=== PATIENT | female | born 1950 | race Caucasian/White ===

== ENCOUNTER → 2019-07-19 08:43 | Outpatient (CLI) | payer MEDICARE, OTHER, SELFPAY ==
[2019-07-19 08:59] LABS: WBC Urine None Seen (0-5/HPF)
[2019-07-19 09:47] LABS: Hemoglobin A1C% w Est Avg Glu 5.2 % (4.0-6.0)
[2019-07-19 10:19] LABS: Appearance Urine UA CLEAR; Bilirubin Urine UA NEGATIVE (NEGATIVE); Color Urine UA YELLOW; Glucose Urine UA NEGATIVE (Negative); Ketones Urine UA NEGATIVE (NEGATIVE); Leukocyte Esterase Urine UA NEGATIVE (NEGATIVE); Nitrite Urine UA NEGATIVE (Negative); Occult Blood Urine UA TRACE-LYSED (Negative); Protein Urine UA NEGATIVE (Negative); Urobilinogen Urine UA 0.2 E.U./dL (0.2); pH Urine UA 5.5 (4.5-8.0)
[2019-07-19 10:44] LABS: Bacteria Urine Few (2-10); Culture Indicated Urine Cult Not Indicated; RBC Urine 0-1/HPF (0-5/HPF); Squamous Epithelial Cell Urine 0-1 /HPF (0-5/HPF)
== END ==
PROVIDERS: Visit Provider Orthopaedic Surgery
DX: Z01.818 Encounter for other preprocedural examination (principal); Z01.812 Encounter for preprocedural laboratory examination; N39.9 Disorder of urinary system, unspecified; Z13.1 Encounter for screening for diabetes mellitus; R73.9 Hyperglycemia, unspecified
CPT/HCPCS: 36415; 81001; 83036; 93005

== ENCOUNTER 2019-08-21 05:54 | Inpatient (IN) | payer MEDICARE, OTHER, SELFPAY ==
[2019-08-07 07:31] VITALS: BMI 25.7
[2019-08-21] VITALS (18 sets, daily range): BP systolic 95–136; BP diastolic 61–85; PULSE 63–88; RESP 11–19; TEMP 35.7–37; O2SAT 92–98; BMI 25.7
--- NOTE | 2019-08-21 | DI.RAD.S_ITS ---
PROCEDURE: XR HIP W PEL IF DONE RT 4V INDICATIONS: ANTERIOR HIP TECHNIQUE: 2 view(s) of the hip acquired. COMPARISON: None. FINDINGS: Spot fluoroscopic intraoperative findings demonstrating right hip arthroplasty, with hardware components in expected positions. Dictated by: Sy Narayan M.D. on 08/21/2019 at 10:40 Approved by: Sy Narayan M.D. on 08/21/2019 at 10:41
[2019-08-21] MEDS: LACTATED RINGERS 1,000 ML 42 ML IV (06:00)
[2019-08-21] MEDS: ONDANSETRON 4 MG/2 ML INJ IV (06:00)
--- NOTE | 2019-08-21 06:00 | DI.RAD.S_ITS ---
PROCEDURE: XR HIP W PEL IF DONE RT 2V INDICATIONS: anterior FAISAL, right TECHNIQUE: 2 view(s) of the hip acquired. COMPARISON: None. FINDINGS: Bones: Patient is status post right hip arthroplasty, with hardware components in expected positions. The hip joint appears congruent. The visualized bony structures appear intact. Soft tissues: Overlying postoperative changes are noted. No suspicious soft tissue densities. IMPRESSION: Expected postsurgical change for right hip arthroplasty. Dictated by: Julianne Hernandez MD, PhD on 08/21/2019 at 12:25 Approved by: Julianne Hernandez MD, PhD on 08/21/2019 at 12:25
[2019-08-21] MEDS: LACTATED RINGERS 1,000 ML 84 ML IV ×2 (06:49→08:53)
[2019-08-21] MEDS: PREGABALIN 75 MG CAPSULE PO (07:04)
[2019-08-21] MEDS: VANCOMYCIN 1,000 MG/200 ML PIGGYBACK 200 MG IV ×2 (07:04→17:33)
[2019-08-21] MEDS: ACETAMINOPHEN 325 MG TABLET 975 MG PO ×3 (07:04→20:59)
--- NOTE | 2019-08-21 07:41 | PM.PREOP ---
Pre-operative Note Interval Note History & Physical reviewed/Exam performed by Physician: Yes Changes to H&P: No
--- NOTE | 2019-08-21 07:42 | P.OP_ITS ---
Operative Date/Time/Diagnoses Date of procedure: 08/21/19 Time of procedure: 07:59 Pre-op diagnosis: Right hip osteoarthritis Post-op diagnosis: same Procedure & Clinicians Procedure: Right total hip arthroplasty Same procedure as scheduled: Yes Indications: The patient has had progressively worsening right hip pain with radiographic changes consistent with arthritis. Non-operative management has failed and the patient has requested total hip replacement. The risks, benefits and alternatives to surgery were discussed with the patient prior to proceeding. Risks discussed included, but were not limited to, failure to relieve pain, leg length discrepancy, dislocation, stiffness, infection, nerve damage, deep venous thrombosis, pulmonary embolism, stroke, coma, heart attack, permanent paralysis and , as well as the potential need for eventual revision of the prosthetic. Surgeon: Olamide Martínez Jacquard Loom Carpet Weaver: Gayatri Esteban Anesthesia Type: General and Spinal Operative Notes Findings: Severe right hip osteoarthritis, good stability, adequate Closure Type: primary Specimen(s): none sent Prosthetic devices, grafts, tissues, transplants, or devices: Martínez and Nephew 54 mm R3 cup, size 6 standard offset anthology, 36+ 0 Oxinium head Estimated Blood Loss (mL): 250 Blood products transfused: none Procedure in detail: The patient was brought to the operating room. Patient was carefully positioned in the supine position. Time-out was performed and antibiotics were given. Anesthesia was induced. She was positioned in the on the table in order to allow hyperextension of the hip. The right lower extremity was prepped and draped in a standard sterile fashion. An anterior right hip incision was made 1 fingerbreadth lateral to the anterior superior iliac spine and extended distally towards the greater trochanter. Dissection was carried out through skin and subcutaneous tissues. The skin and subcutaneous tissues were carefully injected with Lidocaine with epi. Superficial hemostasis was achieved. The fascia over the tensor fascia abdifatah was defined and incised with a knife. Two Allis clamps were used to grasp the fascia. Tensor fascia abdifatah was retracted laterally. A gelpi retractor was placed. Dissection was carried out down along the neck. The circumflex vessels were carefully identified and cauterized with the Aqua Mantis. There was good visualization of the femoral neck. A Cobra was placed superior to the neck and the gluteus fibers were carefully stripped from that superior aspect of the capsule. A 2nd retractor was placed along the inferior aspect of the neck. The rectus insertion along the capsule was partially released. A 3rd retractor that was then gently placed over the rim of the acetabulum under the rectus. Capsule was carefully incised and released from the intertrochanteric line circumferentially superior to the mid sagittal line and inferiorly to the mid sagittal line until the lesser trochanter was palpable. A tag stitch was placed both in the superior and inferior limb of the capsular insertion. Along the acetabulum capsule was also released up to the mid sagittal 12:00 position. A portion of the labrum was resected. A saw was used to perform an osteotomy at the level of the intertrochanteric line and the junction of the superior femoral neck leaving approximately 1 finger breath of residual inferior neck above the lesser trochanter. A 2nd cut was made along the femoral neck at the base of the head and a napkin ring of neck was removed. Corkscrew was placed in the femoral head and the head was removed without difficulty. Retractors were then repositioned around the acetabulum. Residual labrum was resected and additional osteophytes were removed. A reamer that was 4 mm below the templated size was placed by hand in the acetabulum and it was reamed to centralize the acetabulum. It was then reamed up to 2 under the templated size and fluoroscopy was brought in to confirm the position of the reaming and depth of reaming. I reamed 1 under the anticipated size and touched the rim with line to line reaming. A trial cup was placed and noted that it was appropriately sized and fluoroscopy confirmed position and depth. The component was open and inserted without difficulty fluoroscopic imaging was used to confirm that the cup had been adequately seated and was well positioned. Neutral poly trial liner was placed. The cup was tested and noted to be stable. Attention was then directed to the femur. The femur was gently hyperextended additional capsular release was performed as needed in order to allow adequate visualization of the proximal femur with elevation of the femur. Patient was placed in a hyperextended slightly abdducted position with maximum external rotation. Box osteotome was used to check for any residual neck as well as sclerotic bone along the trochanter. [place] pepper was placed in the femur. Additional broaching was performed. Canal finder was used to determine the alignment of the canal and position. Size 1 broach was placed. The canal was then appropriately broached up to the templated size as long as there was adequate stability of the broach and serial advancement of the broach without excessive impingement. Specific attention was directed at avoiding varus attempting to direct the distal aspect of the broach more anteriorly and avoiding excessive anteversion. Trial reduction showed acceptable range of motion, good stability, no posterior impingement, mandaen of leg length and appropriate lateral shuck. I also hyperflexed the hip and checked that there was no impingement anteriorly and there was good stability with flexion, adduction and internal rotation. Final neutral poly was placed without difficulty. Marcaine and Exparel were injected.. The stem was placed without difficulty. Repeat trial reduction and x-ray showed acceptable overall position, length, and no evidence of the femoral fracture. Final head was placed. Wound was meticulously irrigated with normal saline. The hip was reduced and additional Exparel and Marcaine were injected. The capsule was closed with interrupted nonabsorbable sutures. The fascia of the tensor was closed with interrupted and running Vicryl. No drain was placed. Any tensor fascia abdifatah muscle that appeared to be contused or injured which was a minimal amount was carefully resected. Capsule around the tensor was injected with Exparel and Marcaine. The skin was closed with barbed stitches for the subcutaneous tissue and skin. We also used surgical glue. The wound was dressed sterilely. Brief Betadine soak was also used and was meticulously irrigated with normal saline. Patient was transferred to recovery room in satisfactory condition. Complications: none Post-operative Condition: stable Disposition: Acute Care Plan for aftercare: The patient will be maintained on a standard total hip replacement protocol with weight bearing as tolerated and anterior hip precautions. The patient will receive Aspirin and sequential compression devices for DVT prophylaxis. The patient will be discharged home when safe for the home environment.
[2019-08-21] MEDS: CEFAZOLIN 2 GM/100 ML FROZ.PIGGY IV ×3 (07:55→23:59)
--- NOTE | 2019-08-21 08:35 | SUR.OPER ---
Supine, head on gel, torso on [place] table. Both feet placed in the boots and secured by a surgeon and a PA. Left arm secured on arm board <90 degrees abduction, right arm positioned over the chest and taped over blanket to the bed.
[2019-08-21] MEDS: BUPIVACAINE 0.25% W/ EPI 30 ML VIAL 60 ML INJ (08:44)
[2019-08-21] MEDS: BUPIVACAINE LIPOSOME 266 MG/20 ML VIAL INJ (08:45)
[2019-08-21] MEDS: TRANEXAMIC ACID 1,000 MG VIAL 2000 MG INJ ×2 (08:45→09:36)
[2019-08-21] MEDS: SODIUM CHLORIDE IRRIG SOLUTION 250 ML, POVIDONE-IODINE SPONGE STICKS 1 APPLIC IRR (08:48)
--- NOTE | 2019-08-21 11:48 | SUR.PHASEI ---
Patient arrived in PACU somnolent. COLEMAN's x 4. Tolerating po. Denies pain/nausea. On 2L oxygen via [place].Will continue to monitor.
[2019-08-21] MEDS: LACTATED RINGERS 1,000 ML 125 ML IV (12:15)
--- NOTE | 2019-08-21 13:41 | CM.DANOTE ---
DCP Brief assessment: EMR reviewed: patient is a 69 yr old female. Admitted for Rt FAISAL preformed by Dr. Martínez. PCP listed as Juani Madera. Patient not in room at time of CM visit. Patients next of kin listed is Homer [phone]. Insurance: 1st payer: Medicare, 2nd payer: [employer] Discharge plan: Only a brief assessment was done due to patient not being in room at time of CM visit. CM will pass on to CM department for F/U tomorrow 08/22/2019 for in-person assessment and further d/c planning. Uzma Martínez RN. Discharge Planning/Care Management CM Discharge Assessment Start: 08/21/19 13:39 Freq: Status: Active Protocol: Document 08/21/19 13:39 HS (Rec: 08/21/19 13:41 HS [id number]) Discharge Planning Assessment Assigned Manager Acquisition Uzma Martínez RN DPOA/Assigned Designee Name Homer Morgan () Advance Directives? Yes: Has paperwork at home Advance Directives on File No History Provided By Medical Record Prior Living Arrangements Mobile home Household Members spouse Comment Patient not on floor at time of CM visit: Will assess when appropriate: therapy evaluation pending Discharge Plan Home Transportation Arrangement Family Review Status In Process Next Review Type Continued Stay Review Pre-Anesthesia Assessment Start: 08/07/19 07:31 Freq: Status: Active Protocol: Document 08/07/19 07:31 CAB (Rec: 08/07/19 08:01 CAB [id number]) Pre-Anesthesia Assessment Patient Information Reviewed Via Phone Assessment Assessment Completed With Patient Diagnostic Results EKG Comment EKG, A1c, UA only @ [facility] 07/19/19 , remaining outside BMP, CBC scanned Primary Care Provider Juani Madera Medical Clearance Received Yes Seen Specialist in Last 12 Months Yes Specialist Seen Oncologist,Orthopedist Comment PCP pre-op clearance 07/18/19 scanned to record Primary Language Bel[place]ian Federal Appellate Law Clerk Required No Height 170.18 cm Weight 74.389 kg Body Mass Index (BMI) 25.7 Hearing Ability Normal Visual Assist Glasses Dentition Type Teeth, Natural Present,Dental Implants Barriers to Learning None Other Aids No Hx Anesthesia Reactions Yes: Nausea post-op Hx Family Anesthesia Reaction No Hx Malignant Hyperthermia No Hx Blood Transfusions Yes: 1971 Hx Blood Transfusion Reaction No Anesthesia Review Requested No alcohol intake current alcohol intake frequency a few times a week Alcohol Intake Frequency Other: Occasional Smoking Status Former smoker how long ago did patient quit smoking Quit 1971 Substance Use Type marijuana Comment Advised pt not to smoke marijuana 24 hours prior Pain Present Pain Reported Musculoskeletal Symptoms Abnormal Gait,Difficulty Walking,Joint Pain,Joint Stiffness,Muscle Cramps,Muscle Spasms,Muscle Weakness History of Falling (Recent or History of No ) Patient is completely paralyzed or No completely immobile Mental Status Oriented to own ability Is patient on oxygen? No Does patient have CARABALLO/SOB No Hx Sleep Apnea No Currently Taking a Beta Armaan No Can You Climb a Flight of Stairs Without Yes SOB Hx Chest Pain No Hx SOB No Hx Syncope or Dizziness Yes: ZIO patch 06/13/19 Anti-Coagulant Therapy No Has a Tucking Machine Operator No Cardiac Testing Yes: ZIO patch 06/13/19 scanned to record Hx Pacemaker/ICD No Pacemaker Rep Required? No Cardiac Clearance Received Not Applicable dysphagia No Bladder Pattern Incontinent Urinary Catheter Present No Hx Urinary Self Catheterization No Diabetes No Patient No Lactating No Hx Drug Resistant Organism No Presence of External or Internal Medical No Devices Have you traveled outside the [facility] in the last 30 days? Marital Status Lives With spouse Prior Living Arrangements Mobile home Support System Spouse Does the Patient Have Assistance After Yes Surgery Patient Discharge Plan Description Return Home Comment Pt advised overnight length of stay per surgeon Feels Safe in Current Environment Yes Been Physically Hurt or Threatened By a No Person in Current Environment Do you have thoughts of harming yourself None or others? Are you currently considering suicide? No Do you have a plan to hurt yourself or No Plan others? Do You Have Any Spiritual Beliefs That No May Affect Your HC Choices? Do You Have Any Cultural Practices That No May Affect Your HC Choices? Comment [place] Who Can We Speak to About Patient's Care Family, friends Identifying Code for Release of Patient Declines to issue Information Health Care Proxy/Next of Kin Homer () Health Care Proxy Emergency Contact Name Homer () Yulisa ( daughter) Emergency Contact Phone Number Homer: [phone] Yulisa: [phone] Advance Directives? Yes: Has paperwork at home Advance Directives on File No Requested Patient Bring Advanced Yes Directives DOS Power of Senior Clinical Data Manager Yes Power of Senior Clinical Data Manager Name Homer () Power of Senior Clinical Data Manager PAC Instructions Do not shave/clip surgical site,Durable medical equipment ,Medications to take/avoid, Nasal antibiotic,No ETOH/ petroleum product on skin DOS, NPO,Post-op transportation,Pre -surgical wash,Sturdy shoes/ comfortable clothes,Do not bring valuables and remove jewelry
--- NOTE | 2019-08-21 15:28 | PT.IIE ---
Current Diagnoses Unilateral primary osteoarthritis, right hip (08/21/19) Pain in right hip (08/21/19) Surgery Performed Operation Date: 08/21/19 07:45 Actual Procedures p Total Hip Arthroplasty/Anterior Approach(Right) - Olamide Martínez MD Surgical History (Last Updated 08/07/19 @ 07:55 by Carly Trimble, RN) History of esophagogastroduodenoscopy (EGD) (Acute ~05/2017) History of surgery (Acute ~02/2018) Hx of chest tube placement (Acute ~1970) Hx of hernia repair (Acute ~2015) Hx of splenectomy (Acute ~1970) Hx of tracheostomy (Acute ~1970) Hx of tubal ligation (Acute) Medical History (Last Updated 08/07/19 @ 09:22 by Carly Trimble RN) Arthritis (Acute) Concussion (Acute) Constipation (Acute) Easy bruisability (Acute) GERD (gastroesophageal reflux disease) (Acute) Hiatal hernia (Acute) History of radiation therapy (Acute ~2016) Jaw fracture (Acute ~1970) Lung nodules (Acute) Lymphoma (Acute ~05/2017) Pelvis fracture (Acute ~1970) Pneumonia (Acute) Right hip pain (Acute) Physical Therapy Inpatient Evaluation/Re-Eval M1 PT/OT-IP Prior Functional Status Start: 08/21/19 14:15 Freq: NEEDED Status: Active Protocol: Document 08/21/19 15:11 AW (Rec: 08/21/19 15:28 AW [email or web address]) Medical Review Prior Functional Status Medical History Reviewed Yes Diet/Fluid Consistency Regular Communication Able to make needs known Mobility and Gait Pt was independent with all functional mobility without AD . She was able to walk >1/2 mile on uneven terrain Activities of Daily Living and IADL's Independent Social History Household Members spouse Living Arrangements Mobile home Number of Floors (Floors) One Floor Number of Stairs To Enter/Railing? 5 SONYA with left rail ascending Home Environment Standard Height Toilet,Walk in Shower Home Equipment Front Wheel Walker,Straight Cane,Raised Toilet Seat w/ Armrests,Hand Held Shower,Grab Bars Near Toilet Additional Social History Comment Pt lives with her spouse who is available to assist 24/7. M2 PT-IP Current Condition Start: 08/21/19 14:15 Freq: NEEDED Status: Active Protocol: Document 08/21/19 15:11 AW (Rec: 08/21/19 15:28 AW [email or web address]) Physical Therapy Current Condition Current Condition Evaluation Date 08/21/19 Treatment Diagnosis s/p R FAISAL with anterior approach, difficulty in walking Precautions Anterior Hip Precautions No Hip Extension,No Hip External Rotation Weight Bearing Status Weight Bearing Status Weight Bear as Tolerated Allowed Weight Bearing Amount (enter % WBAT RLE or #) (%) M3 PT-IP Subjective Start: 08/21/19 14:15 Freq: NEEDED Status: Active Protocol: Document 08/21/19 15:11 AW (Rec: 08/21/19 15:28 AW [email or web address]) Subjective Physical Therapy Visit Type Type Initial Evaluation Visit Start Time 14:30 Visit Stop Time 15:08 Total Visit Minutes 38 Notes Pt seen with spouse in room Number of TUBE SIZER AND CUTTER OPERATOR Visits 0 Physical Therapy Visit Comments Patient Comments Pt is lying in bed, sleepy but willing to participate in PT Patient Goals Pt wishes to return home as soon as possible with spouse support. Therapy Pain Assessment Pain When Pain Assessed During Mobility Pain Present Pain Present Pain Reported Location right hip Intensity 4 Scale Used Numeric (1 - 10) Pain Management Techniques Apply Cold,Modification of Treatment,Timing of Activity with Medications M4 PT-IP Mobility and Gait Start: 08/21/19 14:15 Freq: NEEDED Status: Active Protocol: Document 08/21/19 15:11 AW (Rec: 08/21/19 15:28 AW [email or web address]) PT-Bed Mobility Assessment Supine to Sit Supine to Sit Contact Guard Assistance Scooting Scooting to Edge of Bed Standby Assistance PT-Transfer Assessment Sit to and From Stand Sit to and from Stand Contact Guard Assistance,1 Person Assistance,Use of Upper Extremities Equipment Transfer Assistive Device Gait Belt,Front Wheeled Walker Orthotic/Prosthetic Devices or Brace: No Transfers Transfer Destination Chair,Bedside Commode Transfer Technique Stand Step Pivot Transfer Ability Level of Assist Contact Guard Assistance,1 Person Assistance,Use of Upper Extremities Comments Mobility Comments Pt completed stand step pivot transfers bed to BSC and BSC to chair using FWW CGA. Gait Assessment Gait Gait Assistance Required: Contact Guard Assist Distance (Feet) 2 Able to Maintain Weight Bearing Status Yes During Gait Assistive Devices Assistive Device Gait Belt,Front Wheeled Walker Orthotic/Prosthetic Devices or Brace: No Gait Deviations General Gait Pattern Antalgic,Decreased Stride Length,Decreased Feet Clearance,Flexed Trunk Factors Limiting Gait Function Factors Limiting Gait Function Decreased Activity Tolerance, Decreased Sensation,Decreased Strength,Limited Range of Motion,Pain Comments Gait Comments Pt performed stand step pivot transfers x 2 including 2 feet ambulation x 2. She still lacks full sensation in feet, so did not ambulate further. BP remained steady around 130/ 80 but pt did report mild lightheadedness in sitting. M5 PT-IP Objective Assessments Start: 08/21/19 14:15 Freq: NEEDED Status: Active Protocol: Document 08/21/19 15:11 AW (Rec: 08/21/19 15:28 AW [email or web address]) Orientation Orientation/Cognition Level of Alertness Alert Orientation Name,Month,Place,Situation Language Function Ability No Deficits Noted Safety Awareness Understands Safety Issues Memory Description No Deficits Noted Gross Range of Motion Upper Extremity ROM Assessment Within Functional Limits Lower Extremity ROM Assessment Right Impaired Strength Upper Extremity Strength Assessment Within Functional Limits Lower Extremity Strength Assessment Right Impaired Comments Strength Comments LLE grossly 4+/5; right ankle DF 4+/5 Coordination Assessment Gross Coordination Gross Coordination WNL Sensation Assessment Sensation Gross Sensation Right LE Impaired,Left LE Impaired Light Touch Impaired Sensation Description [place] Comments Sensation Comments Pt reports tingling in bilateral feet M6 PT-IP Treatment Start: 08/21/19 14:15 Freq: NEEDED Status: Active Protocol: Document 08/21/19 15:11 AW (Rec: 08/21/19 15:28 AW [email or web address]) Physical Therapy Treatment Exercises Exercises Ankle Pumps,Gluteal Sets,Quad Sets,Heel Slides Education Education Provided Precautions,Weight Bearing Status,Post-Op Packet,Safety Other Treatments Other Treatment Performed Educated pt on PT plan of care , anterior hip precautions, post-op exercises, and safe use of FWW. M7 PT-IP Assessment and Plan Start: 08/21/19 14:15 Freq: NEEDED Status: Active Protocol: Document 08/21/19 15:11 AW (Rec: 08/21/19 15:28 AW [email or web address]) PT Summary Assessment and Plan Potential Rehabilitation Potential Excellent Status of Condition at Evaluation Evolving Summary Impairments Pain,ROM,Strength,Sensation, Bed Mobility,Transfers,Gait, Activity Tolerance Assessment Summary Pt is a 69 yo woman seen on POD0 following R FAISAL with anterior approach. PLOF: Independent in all regards. She lives with her spouse who is available to assist 13/06. CLOF: Pt still presents with bilateral tingling in the feet , but was able to transfer supine to sit CGA. [place] also [place] [facility] [place] chair using FWW CGA. She reported mild lightheadedness in sitting, but had appropriate hemodynamic response. Due to lightheadedness and poor sensation in feet, did not proceed to evaluate ambulation or stairs. PT recommends discharge to home with spouse assist and outpatient PT pending anticipated achievement of functional goals in this plan of care. Goals Bed Mobility Goal Standby Assistance Transfer Goal Standby Assistance Gait Goal Standby Assistance Gait Distance 75 feet Other Goals up/down 5 steps using left rail (ascending) CGA Days to Meet Goals 2 Frequency of Treatment Frequency Of Treatment Twice a Day Treatment Plan Physical Therapy Treatment Plan Bed Mobility Training,Transfer Training,Gait Training, Therapeutic Exercise,Balance Retraining,Post Op Education, Discharge Planning,Hot or Cold Pack,Neuromuscular Re-ed, Coordination Retraining,Manual Therapy Recommendations To Nursing Amount of Assist Needed 1 Person Assist Discharge Recommendations PT Discharge Recommendations Home with Assistance, Outpatient PT
[2019-08-21] MEDS: ASPIRIN EC 81 MG TABLET PO (20:59)
[2019-08-21] MEDS: MAG HYDROX/ALUM/SIMETH 30 ML UDC PO (21:00)
[2019-08-21] MEDS: DOCUSATE 100 MG CAPSULE PO (21:00)
--- NOTE | 2019-08-21 22:50 | PC.NURSE ---
Pt is A and O x 4, VSS. She is motivated to DC. Rates pain 5/10 which is acceptable. She has voided clear yellow qs, is eating and is ambulating in room SBA x 1 and FWW. Dressing is C/D/I. RA.
[2019-08-22] MEDS: OXYCODONE IR 5 MG TABLET PO ×3 (00:03→09:17)
[2019-08-22 05:10] VITALS: BP 115/66; PULSE 66; RESP 19; TEMP 36.6; O2SAT 98
[2019-08-22 06:27] LABS: Hematocrit 34.7 % (36-46); Hemoglobin 11.9 g/dL (12.0-16.0)
[2019-08-22 08:00] VITALS: BP 129/46; PULSE 70; RESP 15; TEMP 36.3; O2SAT 98
--- NOTE | 2019-08-22 08:01 | PM.DS.1 ---
History of Present Illness History of Present Illness Date Patient Seen: 08/22/19 Time Patient Seen: 08:01 Chief complaint: [id number] Narrative: Patient's pain is [id number]. Denies fever chills. Patient's is home to assist her. She does have 5 steps in her house. Patient wishes to go home today if safe to do so. She is able to walk several times to and from the bathroom to bed. Discharge Providers Provider Date of admission: 08/21/19 05:54 Discharge Date: 08/22/19 Primary care physician: Juani Madera Consults: 08/21/19 06:00 Consult to Anesthesiology Routine Comment: Consulting Provider: Anesthesiologist Reason for consultation: Regional block for post operative pain control 08/21/19 12:10 Consult to Discharge Planning Routine Comment: Consult to Physical Therapy Evaluate & Treat Comment: Physician Instructions: post op FAISAL protocol Consult to Respiratory Therapy Evaluate & Treat Comment: Physician Instructions: Evaluate and treat Discharge provider: Donn Cunningham PA-C Summary Hospital Course Discharge Diagnosis: Right hip osteoarthritis status post right total hip arthroplasty Hospital Course: [address] [address] Operative Note Patient: Thomas Morgan [facility]#: [id number] : 1950Acct:[id number] Age/Sex: 69 / F Date of Service: 08/21/19 Provider: Olamide Martínez MD Operative Date/Time/Diagnoses Date of procedure: 08/21/19 Time of procedure: 07:59 Pre-op diagnosis: Right hip osteoarthritis Post-op diagnosis: same Procedure & Clinicians Procedure: Right total hip arthroplasty Same procedure as scheduled: Yes Indications: The patient has had progressively worsening right hip pain with radiographic changes consistent with arthritis. Non-operative management has failed and the patient has requested total hip replacement. The risks, benefits and alternatives to surgery were discussed with the patient prior to proceeding. Risks discussed included, but were not limited to, failure to relieve pain, leg length discrepancy, dislocation, stiffness, infection, nerve damage, deep venous thrombosis, pulmonary embolism, stroke, coma, heart attack, permanent paralysis and , as well as the potential need for eventual revision of the prosthetic. Surgeon: Olamide Martínez Fitness Sales Associate: Gayatri Esteban Anesthesia Type: General and Spinal Operative Notes Findings: Severe right hip osteoarthritis, good stability, adequate Closure Type: primary Specimen(s): none sent Prosthetic devices, grafts, tissues, transplants, or devices: Martínez [employer] Nephew 54 mm R3 cup, size 6 standard offset anthology, 36+ 0 Oxinium head Estimated Blood Loss (mL): 250 Blood products transfused: none Patient admitted to the hospital for right total hip arthroplasty. Patient consented to the same. Patient taken to the operating room yesterday underwent right total hip arthroplasty, anterior approach. Patient back in her room recovering as in stable condition. Exam Vital Signs (past 8 hours): - 08/22/19 05:10 Temperature 97.9 F Pulse Rate 66 Respiratory Rate 19 Blood Pressure 115/66 Pulse Oximetry 98 Oxygen Delivery Method Room Air Oxygen Flow Rate 0 Narrative Exam Narrative: Pleasant 69-year-old female resting comfortably in bed in no apparent distress. Right hip dressing is clean, dry and intact. Motor function is intact distal right lower extremity. Sensation grossly intact to light touch. Both legs are warm and dry. SCDs are on and functioning. Objective Labs Result Diagrams: 08/22/19 06:00 Labs: Laboratory Results - last 24 hr 08/22/19 06:00 Hgb 11.9 L Hct 34.7 L Discharge Plan Discharge Plan Patient Disposition: Home Discharge comment: DC home after PT Discharge Med Rec/Prescriptions Prescriptions: Discontinued aspirin 81 mg Tablet,Delayed Release (Dr/Ec) 81 mg PO BID RF: 0 Follow up/Referrals: Juani Madera [Primary Care Provider] - Olamide Martínez MD [Physician] - (1 wk) Provider Discharge Instructions Diet: Diet as Tolerated Activity: Weightbearing as tolerated with standard anterior hip precautions Cold/Heat Therapy: Apply ice to the right hip as needed. Other treatments: Aspirin 81 mg b.i.d., ibuprofen 400 mg q.4 hours, Tylenol 500 mg every 4 hours, oxycodone as needed pain Skin/Wound/Dressing Care Report to your healthcare provider any signs of infection, such as:: chills, fever, increased pain, unusual drainage and unusual redness Dressing: Keep dressing clean and dry Discharge Data Primary Care Provider: Juani Madera Quality VTE Deep Vein Thrombosis/Pulmonary Embolism Present on Admission: No
[2019-08-22] MEDS: DOCUSATE 100 MG CAPSULE PO (08:19)
[2019-08-22] MEDS: ASPIRIN EC 81 MG TABLET PO (08:19)
[2019-08-22] MEDS: ACETAMINOPHEN 325 MG TABLET 975 MG PO (08:19)
--- NOTE | 2019-08-22 10:48 | PT.IPTN ---
Current Diagnoses Unilateral primary osteoarthritis, right hip (08/21/19) Pain in right hip (08/21/19) Surgery Performed Operation Date: 08/21/19 07:45 Actual Procedures p Total Hip Arthroplasty/Anterior Approach(Right) - Olamide Martínez MD Physical Therapy Treatment Note M2 PT-IP Current Condition Start: 08/21/19 14:15 Freq: NEEDED Status: Active Protocol: Document 08/21/19 15:11 AW (Rec: 08/21/19 15:28 AW [email or web address]) Physical Therapy Current Condition Current Condition Evaluation Date 08/21/19 Treatment Diagnosis s/p R FAISAL with anterior approach, difficulty in walking Precautions Anterior Hip Precautions No Hip Extension,No Hip External Rotation Weight Bearing Status Weight Bearing Status Weight Bear as Tolerated Allowed Weight Bearing Amount (enter % WBAT RLE or #) (%) M3 PT-IP Subjective Start: 08/21/19 14:15 Freq: NEEDED Status: Active Protocol: Document 08/22/19 09:15 HH (Rec: 08/22/19 10:48 [email or web address]) Subjective Physical Therapy Visit Type Type Treatment Note Visit Start Time 09:15 Visit Stop Time 09:45 Total Visit Minutes 30 Notes Pt seen with spouse in room Number of SYSTEM SAFETY ENGINEER Visits 0 Physical Therapy Visit Comments Patient Comments Pt agreed to mobilize with PT Therapy Pain Assessment Pain When Pain Assessed During Mobility Pain Present Pain Present Pain Reported Location right hip Intensity 2 Scale Used Numeric (1 - 10) Pain Management Techniques Apply Cold,Modification of Treatment,Timing of Activity with Medications M4 PT-IP Mobility and Gait Start: 08/21/19 14:15 Freq: NEEDED Status: Active Protocol: Document 08/22/19 09:15 HH (Rec: 08/22/19 10:48 [email or web address]) PT-Bed Mobility Assessment Supine to Sit Supine to Sit Standby Assistance Scooting Scooting to Edge of Bed Standby Assistance PT-Transfer Assessment Sit to and From Stand Sit to and from Stand Standby Assistance,Use of Upper Extremities Equipment Transfer Assistive Device Gait Belt,Front Wheeled Walker Orthotic/Prosthetic Devices or Brace: No Transfers Transfer Destination Bed,Chair Transfer Technique Stand Step Pivot Transfer Ability Level of Assist Standby Assistance,Use of Upper Extremities Comments Mobility Comments Educated pt to use L LE to unweight her RLE for pivoting during supine to sit at EOB. She did sit<>stand between bed and chair with SBA and proper hand placements. Gait Assessment Gait Gait Assistance Required: Standby Assistance Distance (Feet) 220 Able to Maintain Weight Bearing Status Yes During Gait Assistive Devices Assistive Device Gait Belt,Front Wheeled Walker Orthotic/Prosthetic Devices or Brace: No Gait Deviations General Gait Pattern Antalgic,Decreased Stride Length,Decreased Feet Clearance Factors Limiting Gait Function Factors Limiting Gait Function Decreased Activity Tolerance, Decreased Sensation,Decreased Strength,Limited Range of Motion,Pain Comments Gait Comments Pt able to amb with close to PLOF with FWW, only with slight antalgic gait. She was able to increase WB on R hip as distance increases. Pt denies discomfort except soreness at R hip. Stair Climbing Assessment Evaluation Level of Assist On Stairs Standby Assistance,Contact Guard Assistance Devices Stair Climbing Assistive Devices Left Railing Technique/Endurance Stair Climbing Direction Ascend and Descend Stair Climbing Technique Step to Step Number of Steps Climbed 3 Stair Climbing Set # Repetitions (reps) 2 M5 PT-IP Objective Assessments Start: 08/21/19 14:15 Freq: NEEDED Status: Active Protocol: Document 08/21/19 15:11 AW (Rec: 08/21/19 15:28 AW [email or web address]) Orientation Orientation/Cognition Level of Alertness Alert Orientation Name,Month,Place,Situation Language Function Ability No Deficits Noted Safety Awareness Understands Safety Issues Memory Description No Deficits Noted Gross Range of Motion Upper Extremity ROM Assessment Within Functional Limits Lower Extremity ROM Assessment Right Impaired Strength Upper Extremity Strength Assessment Within Functional Limits Lower Extremity Strength Assessment Right Impaired Comments Strength Comments LLE grossly 4+/5; right ankle DF 4+/5 Coordination Assessment Gross Coordination Gross Coordination WNL Sensation Assessment Sensation Gross Sensation Right LE Impaired,Left LE Impaired Light Touch Impaired Sensation Description [place] Comments Sensation Comments Pt reports tingling in bilateral feet M6 PT-IP Treatment Start: 08/21/19 14:15 Freq: NEEDED Status: Active Protocol: Document 08/21/19 15:11 AW (Rec: 08/21/19 15:28 AW [email or web address]) Physical Therapy Treatment Exercises Exercises Ankle Pumps,Gluteal Sets,Quad Sets,Heel Slides Education Education Provided Precautions,Weight Bearing Status,Post-Op Packet,Safety Other Treatments Other Treatment Performed Educated pt on PT plan of care , anterior hip precautions, post-op exercises, and safe use of FWW. M7 PT-IP Assessment and Plan Start: 08/21/19 14:15 Freq: NEEDED Status: Active Protocol: Document 08/22/19 09:15 HH (Rec: 08/22/19 10:48 HH [email or web address]) PT Summary Assessment and Plan Potential Rehabilitation Potential Excellent Status of Condition at Evaluation Stable Summary Impairments Pain,ROM,Strength,Sensation, Bed Mobility,Transfers,Gait, Activity Tolerance Progress Towards Goals Safe For Discharge Assessment Summary Pt's spouse attended session. Pt did very well for this session and able to perform all mobility with SBA and FWW. Educated her to use LLE to pivot her RLE during supine to sit. She was also able to climb 3 steps with L rail x 2 sets safely, along with close to PLOF gait pattern. Pt and her both have very good safety awareness and understanding of post op protocol. They are not safe to d/c home with outpatient PT starting from next week, Frequency of Treatment Frequency Of Treatment Discharge Recommendations To Nursing Amount of Assist Needed Standby Assistance Discharge Recommendations PT Discharge Recommendations Home with Assistance, Outpatient PT
== END 2019-08-22 10:56 | disposition home or self-care (01) | DRG 470 ==
PROVIDERS: Admitting Provider Orthopaedic Surgery; PCP Nurse Practitioner Family; Visit Provider Orthopaedic Surgery
PROC: 0SR902Z Replacement of Right Hip Joint with Metal on Polyethylene Synthetic Substitute, Open Approach (ICD-10-PCS; CPT 27130; principal; 2019-08-21 07:45)
DX: M16.11 Unilateral primary osteoarthritis, right hip (principal); Z87.891 Personal history of nicotine dependence
CPT/HCPCS: 36415; 73502; 73503; 76000; 85014; 85018; 94760; 97110; 97116; 97161; 97530; C1776; C9290; J0690; J1100; J1170; J2250; J2405; J2704; J3010